=== PATIENT | male | born 1935 | race Caucasian/White ===

== ENCOUNTER 2017-02-07 16:27 | Inpatient (IN) | payer MEDICARE ==
[~2017-02-07 16:27] MED LIST: ACCUPRIL5 MG; ALLOPURINOL300 M1 PO; ALLOPURINOL300 MG PO; ASPIR-MOX 325325 M1 PO; BABY ASPIRIN81 MG; CARDURA4 MG; CIPRO500 M2 PO; COUMADIN4 M1 PO; COUMADIN4 MG PO; COUMADIN5 M1 PO; COUMADIN5 MG; COUMADIN6 MG; CYCLOBENZAPRINE10 M1 PO; FISH OIL CONC1000 M1 PO; FISH OIL1 CAP; FISH OIL1 CAP PO; FLAGYL500 M1 PO; FLEXERIL10 MG PO; FLEXERIL5 MG; GABAPENTIN300 M1 PO; GEMFIBROZIL600 M2 PO; GEMFIBROZIL600 MG; GEMFIBROZIL600 MG PO; GLIPIZIDE5 M2 PO; GLIPIZIDE5 MG PO; GLUCAGON1 MG/KIT IM; HYDROCODON-ACE1 EA16 PO; KEFLEX250 MG PO; LASIX20 M1 PO; LISINOPRIL5 M1 PO; LOPRESSOR25 MG/TA2 PO; LOVENOX; LOVENOX80 MG/0.1 SC; LOVENOX80 MG/0.8; METFORMIN HCL1000 M2 PO; METFORMIN HCL500 M2 PO; METFORMIN HCL500 MG PO; MILK OF MA400 MG/5 M; MIRALAX17 GM PO; MULTI-VITAMIN1 EAC3 PO; MULTI-VITAMIN1 TAB PO; MULTIVITAMIN1 TAB; NITROQUICK0.4 MG; NORCO 5-325 TA1 EACH PO; NORCO 5/325 TAB1 TAB PO; NORCO 5/3251 TAB PO; OXYCODONE HCL; OXYCODONE-APAP; PANTOPRAZOLE SO40 M3 PO; PHENERGAN25 MG PO; PROTONIX40 MG PO; SENNOSIDES8.6 MG; TOPROL XL50 M1 PO; TYLENOL #31 TA1 PO; TYLENOL W/CODEI1 TAB; TYLENOL W/CODEI1 TAB PO; TYLENOL325 MG PO; ZETIA10 MG
[2017-02-07] MEDS ORDERED: COUMADIN1 M1 PO (16:41)
[2017-02-07] MEDS ORDERED: COUMADIN3 M1 PO (16:41)
[2017-02-07] MEDS ORDERED: FUROSEMIDE20 M1 PO (16:42)
[2017-02-07 16:51] LABS: ABG CO2 ARTERIAL 20 mmol/L (21-27); ARTERIAL BLD GAS O2 SATURATION 99 % (95-98); ARTERIAL BLOOD GAS PCO2 32 mmHg (32-45); ARTERIAL PO2 315 mmHg (70-100); BICARBONATE 19 mmol/L (21-28); BLOOD GAS BASE EXCESS -4 mM/L (-/+3)
[2017-02-07 16:58] LABS: CARBON DIOXIDE-VENOUS 20 mmol/L (21-33); CREATININE 1.83 mg/dl (0.67-1.17); GLUCOSE 181 mg/dl (65-120); POTASSIUM 4.3 mmol/L (3.5-5.3); SODIUM 141 mmol/L (135-146); eGFR VALUE FOR BLACK 40 mL/Min
[2017-02-07 17:01] LABS: BASO % 0.1 % (0-2); EOS % 0.1 % (0-7); HCT-HEMATOCRIT 39.6 % (36.0-53.5); HGB-HEMOGLOBIN 13.5 gm/dl (13.5-17.0); IMMATURE GRANULOCYTES ABSOLUTE 0.02 tho/cmm (0-0.03); IMMATURE GRANULOCYTES PERCENT 0.3 % (0-0.3); LYMPH ABSOLUTE COUNT 0.8 tho/cmm (0.8-4.5); MCH (MEAN CORPUSCULAR HGB) 28.1 pg (28.0-32.0); MCHC MEAN CORPUSCULAR HGB CONC 34.1 % (32.0-36.0); MCV (MEAN CELL VOLUME) 82.3 fl (82.0-96.0); MEAN PLATELET VOLUME 12.4 cmc (9.4-12.4); MONO % 4.3 % (0-12); MONOCYTE ABSOLUTE COUNT 0.3 tho/cmm (0.0-1.2); NEUTROPHIL ABSOLUTE COUNT 5.9 tho/cmm (1.6-8.0); NEUTROPHIL-AUTOMATED 5.9 tho/cmm (1.6-8.0); NEUTROPHILS % 84.2 % (40-80); PLATELET COUNT 134 tho/cmm (150-450); RED BLOOD COUNT 4.81 mil/cmm (4.40-5.70); RED CELL DISTRIBUTION WIDTH 15.9 % (12.4-16.4)
[2017-02-07 17:06] LABS: INR 1.9 INR (0.9-1.1); PROTHROMBIN TIME 22.4 SECONDS (9.0-13.6)
[2017-02-07 17:22] LABS: ANION GAP 12 mmol/L (0-20); CHLORIDE 113 mmol/l (96-110)
[2017-02-07 17:23] LABS: ALBUMIN 3.6 g/dl (3.5-5.0); ALKALINE PHOSPHATASE 81 U/L (33-138); ALT/SGPT 25 U/L (12-78); AST/SGOT 85 U/L (10-40); BILIRUBIN,TOTAL 0.5 mg/dl (0.0-1.5); BLOOD UREA NITROGEN 61 mg/dl (6-24); CALCIUM 8.7 mg/dl (8.5-10.5)
[2017-02-07 17:33] LABS: CREATINE PHOSPHOKINASE (CPK) 3340 U/L (35-232)
[2017-02-07 17:35] LABS: URINE BILIRUBIN NEGATIVE (NEG); URINE BLOOD MODERATE (NEG); URINE GLUCOSE (UA) NEGATIVE (NEG); URINE KETONE NEGATIVE (NEG); URINE LEUKOCYTE ESTERASE NEGATIVE (NEG); URINE NITRITE NEGATIVE (NEG); URINE PROTEIN NEGATIVE (NEG)
[2017-02-07 17:40] LABS: URINE APPEARANCE CLEAR; URINE COLOR YELLOW
[2017-02-07 17:46] LABS: URINE EPITHELIAL CELLS RARE /[HPF] (0-10); URINE RBC 0-3 /[HPF] (0-5); URINE WBC RARE /[HPF] (0-5)
--- NOTE | 2017-02-09 08:27 | NUR ---
Pt was seen the morning of 02-08-2017 X3 from 9:45 until time of . Visit made with Dr Cortez present and medicine changes were made, CHIDI Do also present during that visit. 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 Referral for family suport. Family not present during visits. Per nurse, pt more comfortable after suctioning and giving morphine and ativan. Doses were changed by Dr Cortez to have meds have a longer duration and maintain comfort. Mouth care given. Much mottling noted on legs, feet and hands. No response from pt when changing his position. Pt remained comfortable from the time of my first visit until . Nurse notified family of .
== END 2017-02-08 11:05 | disposition expired | DRG 64 ==
LOC: EDMED 16:27 → EMR2 19:29 → 5WF 22:05
PROVIDERS: Emergency Medicine; ADMIT Hospitalist
PROC: 5A1935Z Respiratory Ventilation, Less than 24 Consecutive Hours (ICD-10-PCS; principal; 2017-02-07)
DX: I61.9 Nontraumatic intracerebral hemorrhage, unspecified (principal); J96.01 Acute respiratory failure with hypoxia; M62.82 Rhabdomyolysis; I62.01 Nontraumatic acute subdural hemorrhage; I25.10 Atherosclerotic heart disease of native coronary artery without angina pectoris; E78.5 Hyperlipidemia, unspecified; I12.9 Hypertensive chronic kidney disease with stage 1 through stage 4 chronic kidney disease, or unspecified chronic kidney disease; E11.22 Type 2 diabetes mellitus with diabetic chronic kidney disease; N18.9 Chronic kidney disease, unspecified; Z87.891 Personal history of nicotine dependence; Z79.01 Long term (current) use of anticoagulants; Z79.84 Long term (current) use of oral hypoglycemic drugs; Z79.899 Other long term (current) drug therapy; Z95.2 Presence of prosthetic heart valve
CPT/HCPCS: J2060; J2270; J7030